=== PATIENT | male | born 1960 | race Caucasian/White ===

== ENCOUNTER 2020-02-17 06:54 | Outpatient (CLI) | payer BC, SELFPAY ==
[2020-02-22 16:02] LABS: Testosterone Free 76.5 pg/mL (35.0-155.0); Testosterone Total 575 ng/dL (250-1100)
== END 2020-02-17 06:55 | disposition home or self-care (01) ==
LOC: CHSLAB 07:00
DX: R79.89 Other specified abnormal findings of blood chemistry (principal)
CPT/HCPCS: 36415; 84402; 84403